=== PATIENT | female | born 1970 ===

== ENCOUNTER 2024-06-28 08:47 | Outpatient (CLI) | payer BC | END 2024-06-28 08:48 | disposition home or self-care (01) | LOC: CSHSLEEP 08:47 | PROVIDERS: ATTEND Internal Medicine | DX: G47.33 Obstructive sleep apnea (adult) (pediatric) (principal); R53.83 Other fatigue; R06.83 Snoring; R09.02 Hypoxemia | CPT/HCPCS: 95800 ==